=== PATIENT | female | born 1995 | race Caucasian/White ===

== ENCOUNTER 2021-07-22 09:32 | Emergency (ER) | payer OTHER, SELFPAY ==
[2021-07-22 09:47] VITALS: BP 139/84; PULSE 109; RESP 18; TEMP 37.3; O2SAT 99
--- NOTE | 2021-07-22 10:27 | ED.FEMALEGU ---
HPI - Female Genitourinary General Stated complaint: uti complaint Time Seen by Provider: 07/22/21 10:27 Source: patient and family History of Present Illness HPI Narrative: Patient presents with burning with urination. Patient denies any abdominal pain no pelvic pain. Patient denies any vaginal discharge. Patient reports that she was treated for UTI with Macrobid 1 month ago and that her symptoms have returned. Patient denies any flank pain and no gross hematuria. Patient denies any concern for STDs. Patient denies any gross hematuria no flank pain. MD elicited complaint: dysuria and UTI Related Data Allergies Allergy/AdvReac Type Severity Reaction Status Date / Time No Known Allergies Allergy Unverified 01/26/18 19:07 Review of Systems Review of Systems: CONSTITUTIONAL: Denies fever, chills, or sweats. EYES: Denies visual changes, redness, or discharge. ENT: Denies rhinorrhea, congestion, sore throat, or otalgia. CARDIOVASCULAR: Denies chest pain, palpitations, or edema. RESPIRATORY: Denies cough or dyspnea. GASTROINTESTINAL: Denies abdominal pain, nausea, vomiting, or diarrhea. GENITOURINARY: Denies dysuria or hematuria. SKIN: Denies rash or itching. MUSCULOSKELETAL: Denies back pain, joint pain, or myalgia. NEUROLOGIC: Denies headache, numbness, or weakness. PSYCHIATRIC: Denies anxiety or depression. PMFSH Comments At time of signature, agree with nursing past medical, surgical, social and family history. There is no relevant family history pertinent to the presenting complaint Exam Narrative: GENERAL: Well-appearing, well-nourished, and in no acute distress. HEAD: Normocephalic, atraumatic. EYES: PERRLA and EOMI. ENT: Nares clear, no rhinorrhea or epistaxis. Mucous membranes moist. NECK: Supple. CHEST: Clear to auscultation. No respiratory distress. HEART: Regular rate and rhythm. No murmur heard. Normal peripheral pulses. ABDOMEN: Soft, nontender, nondistended, normal active bowel sounds. EXTREMITIES: Normal range of motion. No edema. SKIN: Warm, dry, no rash. NEURO: No focal deficits. Alert and oriented x3. Sam Coma Scale Eye Opening: Spontaneous 4 Moore Coma Scale Motor: Obeys Commands 6 Sam Coma Scale Verbal: Oriented 5 Moore Coma Scale Total 15 Course Course Level of Care: Express Care Visit Vital Signs Vital signs: Vital Signs Temperature 37.3 C 07/22/21 09:47 Pulse Rate 109 H 07/22/21 09:47 Respiratory Rate 18 07/22/21 09:47 Blood Pressure 139/84 07/22/21 09:47 Pulse Oximetry 99 07/22/21 09:47 Temperature 37.3 C 07/22/21 09:47 Pulse Rate 109 H 07/22/21 09:47 Respiratory Rate 18 07/22/21 09:47 Blood Pressure 139/84 07/22/21 09:47 Pulse Oximetry 99 07/22/21 09:47 Please DEVORAH schedule a followup visit with your personal physician for further evaluation and treatment. Including recheck and discussion of your blood pressure. If your symptoms persist, change or worsen significantly before you can contact your personal physician then please, without delay, go to the emergency department for further evaluation MDM - Female Genitourinary Differential Diagnosis Differential diagnosis: Likely urinary tract infection, bacterial vaginosis, trichomoniasis, cervicitis, ovarian cyst, vaginitis, ruptured ovarian cyst, cyst of Bartholin's gland, cystitis, dysmenorrhea and other Lab Data Labs: Urine Glucose Negative Reference Range: Negative Urine Bilirubin Negative Reference Range: Negative Urine Ketone Negative Reference Range: Negative Urine Specific [place] 1.015 Reference Range:1.001-1.035 Urine Blood Negative Refer
== END 2021-07-22 10:54 | disposition home or self-care (01) ==
PROVIDERS: Emergency Provider Nurse Practitioner Family
DX: N39.0 Urinary tract infection, site not specified (principal)
CPT/HCPCS: 81003; 87086; 99203; G0463

== ENCOUNTER 2021-10-16 18:18 | Emergency (ER) | payer OTHER, SELFPAY ==
--- NOTE | 2021-10-16 18:24 | ED.FEMALEGU ---
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 Fong is a 25-year-old female patient presenting to the clinic today with possible vaginal infection. She reports she has been having foul odor clear then vaginal discharge for 2 days. Denies any vaginal bleeding. Reports that this feels as though it is bacterial vaginitis as she has had this in the past. She denies any fever, chills or abdomen pain. Last menstrual period was a couple weeks ago. Related Data Allergies Allergy/AdvReac Type Severity Reaction Status Date / Time No Known Allergies Allergy Unverified 10/16/21 18:34 Review of Systems Review of Systems: Pertinent positives per HPI. Patient denies any fever, chills, rash, headache, visual changes, dizziness, cough, runny nose, sore throat, shortness of breath, chest pain, palpitations, nausea, vomiting, diarrhea, constipation, abdominal pain, or any urinary issues. PMFSH Comments At the time of my signature, I reviewed and agree with the nursing past medical, surgical, social, and family history. There is no relevant family history pertinent to the patient complaint. Exam Narrative: General: Well-developed, well nourished, in no apparent distress Head: Normocephalic, atraumatic. Cardio: Regular rate and rhythm, s1 and s2 normal, no murmur appreciated. Resp: Clear to auscultation bilaterally, no rhonchi, rales, wheezing or rubs. Abdomen: Soft, pliable, bowel sounds present in all quadrants, non-tender to palpation, no CVAT tenderness. : Pelvic exam performed with Ronda CCRT at bedside. Verbal consent obtained from patient. Normal external female genitalia without lesions or masses, Urinary meatus: patent, without discharge or scaring Vagina: No lesions, masses, or white/clear vaginal discharge noted around vaginal os and in pelvic vault Cervix: pink without mass, lesions, discharge, or tenderness. Adnexa:non-tender, without palpable mass or tenderness. Bimanual exam not performed. Swabs for g/c, chly, trich, and BV obtained. Course Course Emergency Course: Portions of this record may have been created with voice recognition software. Level of Care: Express Care Visit Vital Signs Vital signs: Vital signs reviewed MDM - Female Genitourinary MDM Narrative Medical decision making narrative: At the time of assessment patient is resting comfortably on the exam table. She reports having itchy and somewhat painful vaginal discharge that has been going on for approximately 2 days. Pelvic exam was completed with Ronda, patient has clear/whitish vaginal discharge. I suspect BV and with treat with a course of Flagyl. Swabs were obtained to test gc/chly,trich, and bv. Discharge Plan Discharge Clinical Impression: Vaginal discharge, Bacterial vaginosis Patient Disposition: Home, Self-Care Condition: Stable Instructions: Antibiotic Form, Bacterial Vaginosis (ED), Vaginal Discharge (ED) Additional Instructions: Metronidazole as directed. Avoid intercourse until symptoms have resolved and you have finished your medication Chlamydia, gonorrhea, BV, and trichomonas testing completed in the clinic today. Increase fluids and stay well-hydrated. Follow-up with your [facility] as scheduled. Prescriptions: New metronidazole 500 mg tablet 500 mg PO Q12H 7 Days Qty: 14 RF: 0 Follow-up/Referrals: UNKNOWN,DOCTOR [Primary Care Provider] - Time of Disposition: 18:59 Quality NIHSS Nursing Documentation ED NIHSS nursing documentation: reviewed/agree
[2021-10-16 18:28] VITALS: BP 149/90; PULSE 103; RESP 20; TEMP 37.2; O2SAT 100
== END 2021-10-16 19:05 | disposition home or self-care (01) ==
PROVIDERS: Emergency Provider Nurse Practitioner Family
DX: N76.0 Acute vaginitis (principal)
CPT/HCPCS: 87070; 87491; 87591; 87661; 99214; G0463